=== PATIENT | female | born 1980 | race Caucasian/White ===

== ENCOUNTER 2024-11-09 01:24 | Day surgery (SDC) | payer OTHER, SELFPAY ==
[2024-10-27 14:56] VITALS: BMI 30.1
--- NOTE | 2024-10-27 15:02 | SUR.PREOP ---
Report to the Outpatient Waiting Room, entrance under the green pavilion located off [facility], at time 10:00a.m. on date 11/08/2024. Planned Procedure Time: 12:00p.m,.? Time changes happen often and if your time is changed the preop area will call you the afternoon before. - You and your visitor will be asked to self-screen and do not enter if you have any COVID symptoms. Please call surgeon if you need to reschedule. - A mask is optional within the hospital at this time. Patients may have clear liquids (water, carbonated beverages, clear teas, apple juice) until 3 hours prior to surgery with a maximum of 20 ounces. - No food from midnight until time of surgery and no smoking, or chewing tobacco (or any form of nicotine). No chewing gum, candy or mints. Take only the following medications with a SIP of water on the morning of surgery: levothyroxine, Bactrim DO NOT STOP ANY OF YOUR OTHER PRESCRIPTION MEDICATIONS PRIOR TO SURGERY EXCEPT THE FOLLOWING Hold all vitamins and supplements for 3 days per anesthesiologist. Medications to discontinue per physician NONE Please no make-up, nail english, hairspray, perfume, deodorant, or body powder the day of surgery.? No jewelry (including any body piercings) or valuables the day of surgery, leave them at home.? Please take a shower or bath the night before, or the morning of, surgery with an antibacterial soap.? Wear comfortable, loose fitting clothing.? Children are encouraged to wear pajamas. - Jewelry must be removed prior to entering the operating room.? Rings and piercings that are not removed may be cut off. - The hospital will not accept responsibility for valuables.? - Please leave all valuables, including medications, at home the day of surgery. If you are going home after surgery, a licensed cpr ambulance driver must drive you home.? - NO public transportation without another adult if you receive anesthesia. - We recommend that an adult stay with you for 24 hours following discharge. - We also recommend that you do not drive, make important decision, drink alcoholic beverages, or take any drugs that were not prescribed by your health care provider for at least 24 hours after your discharge time. Follow any additional instructions given to you from your surgeon. Telephone instructions given to Buzz Aguilar and asked if any additional questions and then verbalized understanding. Patient advised to call surgeon office or pre surgery nurse liaison [phone] if any additional questions.
--- OUTSIDE RECORDS SUMMARY | 2024-11-09 01:28 | XMS_ITS | Clinical Summary ---
Author Organization [facility] [employer] Address [address] [place] [address] Care Team Providers Care [address] Man Name Role Phone Ena Lundberg MD Primary Care Provider [phone] Source Comments [facility] [employer],non-owned Affiliates and Associated Physician Practices is amultiple site organization consisting of ambulatory clinics and hospital sitesin [place], [place], [place] and [place]. This disclosure is being madepursuant to the Care Everywhere program and may not contain all information available regarding this patient. Last updated 18.[facility] [employer] Allergies No known active allergies Medications * Be aware that medications may not be up to date on this document. Alwaysverify current medications with the patient. levothyroxine (SYNTHROID) 112 MCG tablet once daily 9 Active albuterol HFA (PROVENTIL;VENT OMAR;PROAIR) 108 (90 Base) MCG/ACT inhaler Inhale 2 puffs by mouth every 4 hours as needed 18 g 0 Active levonorgestrel (MIRENA, 52 MG,) 20 MCG/24HR IUD 1 device by Intrauterine route as directed Active benzonatate (TESSALON) 200 MG capsule Take 1 capsule by mouth 3 times daily as needed for Cough 30 capsule 0 Active Active Problems Problem Noted Date Diagnosed Date Hypothyroid Family History Relation Name Status Comments Father Alive Mother Alive Social History Tobacco Use Types Packs/Day Years Used Date Smoking Tobacco: Never Smokeless Tobacco: Never Comments No Sex and Gender Information Value Date Recorded Sex Assigned at Not on file Legal Sex Female 7:48 AM SAL[employer]AGE INS[employer] Gender Identity Not on file Sexual Orientation Not on file Last Filed Vital Signs Vital Sign Reading Time Taken Comments Blood Pressure 102/62 09/05/2019 2:14 PM [employer] Pulse 82 09/05/2019 2:14 PM [employer] Temperature 37.5 C (99.5 F) 09/05/2019 2:14 PM [employer] Respiratory Rate 18 09/05/2019 2:14 PM [employer] Oxygen Saturation 98% 09/05/2019 2:14 PM [employer] Inhaled Oxygen Concentration - - Weight 70.3 kg (155 lb) 09/05/2019 2:14 PM [employer] Height 157.5 cm (5' 2 ) 09/05/2019 2:14 PM [employer] Body Mass Index 28.35 09/05/2019 2:14 PM [employer] Plan of Treatment Health Maintenance Due Date Last Done Comments COLOGUARD (AGES 45-75) - COL ON CA SCREENING 1979 COLON MONITORING 1979 COLONOSCOPY - COLON CA SCREENING 1979 CT COLONOGRAPHY - COLON CA SCREENING 1979 Colorectal Cancer Screening 1979 FIT - COLON CA SCREENING 1979 FLEX SIG - COLON CA SCREENING 1979 LIPID TESTING 1979 MAMMOGRAM 1979 HIV SCREENING 09/18/1994 HEPATITIS C SCREENING 09/14/1997 DTAP/TDAP/TD VACCINES (1 - Tdap) 09/18/1998 HEPATITIS B VACCINE (1 of 3 - 19+ 3-dose series) 09/18/1998 COVID-19 VACCINE (1 - 2023-2 5 season) 2024 DEPRESSION SCREENING 07/22/2024 INFLUENZA VACCINE (Season Ended) 2025 06/25/20 14 ZOSTER VACCINE (1 of 2) 09/18/2029 HIB VACCINE Aged Out No longer eligi ble based on patient's age to complete this topic HPV VACCINE Aged Out No longer eligi ble based on patient's age to complete this topic MENINGOCOCCAL (Group B) VACC INE SHARED DECISION-MAKING Aged Out No longer eligibl e based on patient's age to complete this topic MENINGOCOCCAL GROUPS A/C/Y/W VACCINE Aged Out No longer eligible b ased on patient's age to complete this topic PNEUMOCOCCAL VACCINE Aged Out No long er eligible based on patient's age to complete this topic Insurance [facility] Care Teams [address] Man Relationship Specialty Start Date End Date Ena Lundberg MD [address] [place] [address] PCP - General 02/22/09
--- OUTSIDE RECORDS SUMMARY | 2024-11-09 01:28 | XMS_ITS | Clinical Summary ---
Author Organization [facility] Address [address] [place] [address] Care Team Providers Care Nurse'S Aides Teacher Name Role Phone Bulmaro Reyes MD Primary Care Provider [phone] Allergies No known active allergies Medications levonorgestreL (Mirena) 21 mcg/24 hours (8 yrs) 52 mg IUD 1 Device by Intrauterine route. Active levothyroxine 112 mcg tablet Take 112 mcg by mouth daily in the morning. 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 Gender Identity Not on file Sexual Orientation Not on file Last Filed Vital Signs Vital Sign Reading Time Taken Comments Blood Pressure 138/86 09/17/2023 4:36 PM HOUSEKEEPER HOME Pulse 59 09/17/2023 4:36 PM HOUSEKEE[employer] HOME Temperature - - Respiratory Rate - - Oxygen Saturation - - Inhaled Oxygen Concentration - - Weight 76.2 kg (168 lb) 09/17/2023 4:36 PM HOUSEKEE[employer] HOME Height 160 cm (5' 3 ) 09/17/2023 4:36 PM HOUSEKEEPER HOME Body Mass Index 29.76 09/17/2023 4:36 PM HOUSEKEEPER HOME Plan of Treatment Health Maintenance Due Date Last Done Comments DTAP/TDAP/TD VACCINES (1 - Tdap) 09/18/1998 HEPATITIS B VACCINES (1 of 3 - 19+ 3-dose series) 09/18/1998 HPV/Cotest (21-29) 09/18/2000 CERVICAL CANCER SCREENING 09/18/2009 HPV/Cotest (30-65) 09/18/2009 PAP SMEAR 09/18/2009 BREAST CANCER SCREENING 2019 INFLUENZA VACCINE (#1) 2024 COLORECTAL SCREENING 09/18/2024 Colorectal Cancer Screening 09/18/2024 FIT-DNA Q 3 years 09/18/2024 FIT/FOBT Q 1 year 09/18/2024 Flex Sig/CT Colonography Q 5 years 09/18/2024 HPV VACCINES Aged Out No longer eligi ble based on patient's age to complete this topic Insurance [place] [id number] Care Teams Nurse'S Aides Teacher Relationship Specialty Start Date End Date Bulmaro Reyes MD [address] [facility] [address] [place] [address] PCP - General 08/23/22
[2024-11-09 10:20] VITALS: BP 123/71; PULSE 54; RESP 16; TEMP 36.3; O2SAT 100
--- NOTE | 2024-11-09 11:18 | P.PNAN_ITS ---
Anes - Initial Pre Proc Eval Procedure: Operation Date: 11/09/24 12:00 Proposed Procedures p Excision Right Anterior Neck Cyst - Jose Grullon MD Date/Time: 11/09/24 11:18 Surgeon: Jose Grullon MD Pre Op Diagnosis: Right Anterior Neck Cyst Patient Data Age: 44 Gender: F Height: 1.57 m Weight: 78.5 kg Last Vital Signs Temp 36.3 C L 11/09/24 10:20 Pulse 54 L 11/09/24 10:20 Resp 16 11/09/24 10:20 BP 123/71 11/09/24 10:20 Pulse Ox 100 11/09/24 10:20 O2 Del Method Room Air 11/09/24 10:20 Allergies Allergy/AdvReac Type Severity Reaction Status Date / Time No Known Allergies Allergy Verified 10/27/24 14:55 Home Medications ?Medication ?Instructions ?Recorded ?Confirmed ?Type levothyroxine 125 mcg tablet 125 mcg PO DAILY #30 tabs 10/01/24 11/09/24 Rx sulfamethoxazole 400 1 tablet PO DAILY #7 tabs 10/22/24 11/09/24 Rx mg-trimethoprim 80 mg tablet (Bactrim) Patient hx anesthesia problems: none Family hx anesthesia problems: none Results Review: All pre-operative results and documents have been reviewed as part of the pre- operative evaluation. [facility] Past Medical History Medical History HLD (hyperlipidemia) Acquired hypothyroidism Raynaud's disease without gangrene Family History Family History Father Hypertension Cerebrovascular accident Family history of malignant neoplasm of urinary bladder Diabetes mellitus Heart disease Grandparent Diabetes mellitus Heart disease Cerebrovascular accident Mother Heart disease Hypertension Social History Social History Smoking status: Never smoker Second hand tobacco smoke exposure: No Alcohol intake: never Substance use: never Substance use type: does not use Do You Feel Safe in your Home?: Yes Lack of Transportation: No Lack of Food: Never True Current Housing: I Have Housing Concerned About Future Housing: No Difficulty Paying Gas/Electric Bills: No Difficulty Paying for Meds: No Currently Unemployed: No Education: Master's Degree or Higher Difficulty w/ Childcare or Family Care: No Living arrangements: with family Occupation/Education: occupation Gender identity (if verbalized by the patient): Female Sexual Orientation (if Verbalized by the Patient): Straight or Heterosexual Spiritual care concerns: No Anes - Eval Final PreProcedure Day of Procedure 11/09/24 11:18 Patient weight: obese Heart: regular rate and rhythm Lungs: clear to auscultation Airway: Mallampati scale class II Neurological: alert and oriented Last oral intake: >/= 8 hours ASA classification: III Emergent: no Anesthetic plan: proceed Anesthesia type and monitoring: general GIVS and standard monitoring Results Review: All pre-operative results and documents have been reviewed as part of the pre- operative evaluation. Informed Consent: The patient's anesthetic plan and its attendant risks and benefits were discussed with the patient/family/POA. Questions were solicited and answers provided to the satisfaction of the patient/family/POA.
--- NOTE | 2024-11-09 12:03 | WPDHPUPDATE1 ---
History and Physical Update Update Date/Time: 11/09/24 12:03 History and Physical has been reviewed, including an updated exam of the patient. There are NO changes in the patient's condition. Risks, benefits, and alternatives have been discussed and questions answered. Patient agrees to proceed with procedure.
[2024-11-09] MEDS: ceFAZolin 2 GM/D5W 50 ML 2 GM/50 ML BAG IVPB (12:15)
[2024-11-09] MEDS: LIDO 1%/EPINEPHRINE 1:100,000 50 ML VIAL INFILTRATE (12:33)
[2024-11-09] MEDS: BUPivacaine HCL 0.5% PF 30 ML VIAL 5 ML INFILTRATE (12:34)
[2024-11-09 13:09] VITALS: BP 121/67; PULSE 61; RESP 20
[2024-11-09] MEDS: LACTATED RINGERS 1,000 ML 30 ML IV CONT (13:09)
--- NOTE | 2024-11-09 13:12 | P.OP_ITS ---
Procedure Note - Detailed Date of Procedure 11/09/24 Pre-op Diagnosis Ruptured right anterior neck cyst Post-op Diagnosis Same Procedure Performed Excision ruptured right anterior neck cyst with 3.5cm intermediate layered wound closure. Surgeon Jose Grullon MD Anesthesia MAC and Local Indications Patient is a 44-year-old female who initially presented to my office with an infected sebaceous cyst in the lower right anterior neck overlying the medial head of the right sternocleidomastoid muscle. She suddenly had incision and drainage of the cyst in the office and was started on oral antibiotics. The cyst has now decompressed and the cellulitis has resolved. She now presents for excision of the cyst wall remnants. Findings The cyst measured 2x1x0.7cm. It was sent to pathology for examination. The incision was closed with a 3.5cm intermediate layered wound closure. Description of Procedure After informed consent was obtained patient brought to the operating room she was then placed in the supine position. IV sedation with laryngeal mass was administered. The upper anterior chest and neck region was then prepped and draped usual sterile fashion. A time-out was then performed correctly identi fying the patient as well as procedure to be performed. Site marking was verified. 1% lidocaine mixed with 0.5% Marcaine with some epinephrine was injected around the cyst for local anesthetic effect. I then used a scalpel to make a small elliptical incision along the direction of the Langerhans lines and incised through the dermis of the skin into the subcutaneous tissues. Great care was taken not to cut into the medial head of the right sternocleidomastoid muscle. The elliptical incision completely incorporated the cyst wall. I then utilized electrocautery to very carefully dissect the cyst wall and the overlying ellipse of skin and completely resect the cyst. The cyst was measured and it was 2x1x0.7cm. It was sent to pathology for examination. Hemostasis in the incision was then if she utilized electrocautery. I then irrigated sterile saline solution hemostasis was good. I then injected more local anesthetic mixture around the incision for postoperative pain relief. I then performed a 3.5cm intermediate layered wound closure to approximate the edges of the wound. Interrupted 3-0 Vicryl sutures placed in subcutaneous tissues. This is then followed by running subcuticular 4-0 Monocryl suture to approximate the skin edges. The incision was then cleaned and then skin glue was applied. The patient tolerated the procedure well no complications. All sponges, needles, and instrument counts were correct at the end procedure. EBL was _5__cc. The patient was awakened and taken to recovery in stable and satisfactory condition. Implants None Estimated Blood Loss 5 Drains No Packing No Pathology Yes (Ruptured sebaceous cyst sent to pathology) Complications No immediate complications Condition Stable Disposition PACU [facility] Billing Surgery - Charge Forward: Surgery Billing
[2024-11-09 13:30] VITALS: BP 107/74; PULSE 57; RESP 20
[2024-11-09 13:53] VITALS: BP 120/79; PULSE 50; RESP 20
== END 2024-11-09 13:59 | disposition home or self-care (01) ==
PROVIDERS: PCP Family Medicine; Visit Provider Surgery
PROC: (CPT 11422; principal; 2024-11-09 12:00)
DX: L72.0 Epidermal cyst (principal); L92.3 Foreign body granuloma of the skin and subcutaneous tissue; E78.5 Hyperlipidemia, unspecified; E03.9 Hypothyroidism, unspecified; I73.00 Raynaud's syndrome without gangrene; E66.9 Obesity, unspecified; Z68.31 Body mass index [BMI] 31.0-31.9, adult; Z80.52 Family history of malignant neoplasm of bladder; Z82.49 Family history of ischemic heart disease and other diseases of the circulatory system
CPT/HCPCS: 11422; 12042; 88305; A9270; J0690; J2004; J2250; J2704; J3010; J7120